=== PATIENT | male | born 1995 | race African-American/Black ===

== ENCOUNTER 2020-03-03 09:01 | Emergency (ER) | payer BC ==
[~2020-03-03] VITALS: Ht 182.9 cm; Wt 131.0 kg
[2020-03-03 09:11] VITALS: BP 145/84
--- NOTE | 2020-03-03 10:02 | RAD ---
EXAM: FINGER(S) RIGHT 03/03/2020 9:35 AM CLINICAL INDICATION:Hyperextended second digit last night, pain and swelling COMPARISON:None TECHNIQUE:3 views of the right second finger. FINDINGS:No acute fracture. Alignment is normal. Joint spaces are maintained. Bone mineralization is normal. Mild soft tissue swelling. IMPRESSION:No acute osseous abnormality. Electronically signed by: Frances Falk MD (03/03/2020 9:59 AM) [email or web address]
--- NOTE | 2020-03-03 10:31 | ED.ADGEN ---
Past Medical History Past Medical History: No Pertinent History Past Surgical History: No Surgical History Smoking Status: Never Smoker Alcohol Use: Occasionally Drug Use: Marijuana General Adult EDM: Chief Complaint: HAND PROBLEM HPI: HPI: Patient is a 24-year-old previously healthy male who presents to the emergency room complaining of right index finger pain after it was pulled backwards yesterday. He states that the pain is somewhat better today but was severe last night. He tried to lift a pallet at work today was unable to do that due to severe pain in his hand. He denies any other injuries. Review of Systems: Review of Systems: Negative other than noted Allergies: Allergies: Allergies Coded Allergies Type Severity Reaction Last Updated Verified No Known Drug Allergies 11/17/14 No Physical Exam: PE: General: Awake, alert, NAD. Well Nourished, well hydrated. Cooperative HEENT: Atraumatic, EOMI, PERRL, airway patent, moist oral mucosa Neck: Supple, trachea midline Respiratory: CTA bilaterally, normal effort, no wheezing/crackles CV: RRR, no murmur, cap refill <2 GI: Soft, nondistended, nontender, no masses MSK: No obvious deformities. Right hand, full range of motion, no deformities, no swelling Skin: Warm, dry, intact Neuro: A&O x3, speech NL, sensory and motor grossly intact, no focal deficits Psych: Normal affect, normal mood, not suicidal or homicidal Current Patient Data: Vital Signs: Vital Signs Date Time Temp Pulse Resp B/P (MAP) Pulse Ox O2 Delivery O2 Flow Rate FiO2 03/03/20 09:11 98.1 91 16 145/84 (104) 97 Room Air 98.1 EKG: EKG: [] Heart Score: Risk Factors: Risk Factors: DM, Current or recent (<one month) smoker, HTN, HLP, family history of CAD, obesity. Risk Scores: Score 0 - 3: 2.5% MACE over next 6 weeks - Discharge Home Score 4 - 6: 20.3% MACE over next 6 weeks - Admit for Clinical Observation Score 7 - 10: 72.7% MACE over next 6 weeks - Early Invasive Strategies Radiology/Procedures: Radiology/Procedures: [] Course & Med Decision Making: Course & Med Decision Making Pertinent Labs and Imaging studies reviewed. (See chart for details) X-rays were done of the hand and are normal. Patient has full range of motion. He likely has a sprain. I have recommended he follow-up with orthopedic surgery if it does not improve within the next week. Discharge Liya Disclaimer: Liya Disclaimer: This electronic medical record was generated, in whole or in part, using a voice recognition dictation system. Departure Departure Impression: Primary Impression: Finger sprain Disposition: 01 DC HOME SELF CARE/HOMELESS Condition: STABLE Referrals: NO PCP (PCP) JEYSON ESCOBAR MD Patient Instructions: Finger Sprain LUIS PATTON MD Mar 03, 2020 10:31
== END 2020-03-03 10:35 | disposition home or self-care (01) ==
LOC: ER 09:01
DX: S63.610A Unspecified sprain of right index finger, initial encounter (principal); X50.9XXA Other and unspecified overexertion or strenuous movements or postures, initial encounter; Y93.89 Activity, other specified; Y92.89 Other specified places as the place of occurrence of the external cause; Y99.8 Other external cause status
CPT/HCPCS: 73140; 99283